=== PATIENT | female | born 1975 | race Caucasian/White ===

== ENCOUNTER 2016-04-01 20:06 | Emergency (ER) | payer MEDICARE, MEDICAID ==
[~2016-04-01] VITALS: Ht 165.1 cm; Wt 68.0 kg
[~2016-04-01 20:06] MED LIST: CHOL200018 PO; CIPR-263 PO; DEPER5 PO; DOCU-138 PO; LAM1 PO; LAM2 PO; LEVE1000 PO; LORA-249 PO; LORA-250 PO; METO10TA3 PO; OMEP20CA4 PO; PARO20TA53 PO; RISP3 PO; RISP4 PO; SIMV20TA2 PO; TEMA30CA PO; [UNRECOGNIZED DRUG - OTHER] PO
[2016-04-01] MEDS ORDERED: LORAZEPAM 2MG/ML CPJ IV STA (23:02)
[2016-04-01] MEDS ORDERED: SODIUM CHLORIDE 0.9% 1,000 ML IV ONE (23:02)
[2016-04-01] MEDS ORDERED: LAMOTRIGINE 100MG TABLET PO SCH (23:30)
[2016-04-02] MEDS: LEVETIRACETAM 500MG/5ML CUP PO SCH ×3 (00:33→16:34)
[2016-04-02 01:22] LABS: BASOPHILS % 0.4 % (0.0-2.0); DIFFERENTIAL COMMENT 0; EOSINOPHILS % 8.4 % (0.0-5.0); HEMATOCRIT. 29.4 % (36.0-48.0); HEMOGLOBIN. 9.4 g/dL (12.0-16.0); LYMPHOCYTES % 40.6 % (20.0-50.0); MEAN CORPUSCULAR VOLUME 74.9 fL (81.0-99.0); MEAN PLATELET VOLUME 9.1 fl (7.4-10.4); MONOCYTES % 7.1 % (2.0-8.0); NEUTROPHILS % 43.5 % (40.0-76.0); PLATELET 279 x1000/uL (130-400); RED BLOOD CELL COUNT 3.92 mill/uL (4.2-5.4); RED CELL DISTRIBUTION WIDTH 19.2 % (11.6-14.6); WHITE BLOOD COUNT 8.9 x1000/uL (4.5-11.0)
[2016-04-02 01:46] LABS: HCG SCREEN NEGATIVE
[2016-04-02 02:16] LABS: ALBUMIN 2.6 g/dL (3.4-5.0); ANION GAP 11; CALCIUM 8.1 mg/dL (8.5-10.1); CARBON DIOXIDE 30 mEq/L (21-32); CHLORIDE 103 mEq/L (98-107); UREA NITROGEN BLOOD 12 mg/dL (7-21); eGFR > 60 mL/min (>60)
[2016-04-02 02:17] LABS: ACETAMINOPHEN < 2 ug/mL (10-30); ALANINE AMINOTRANSFERASE 10 IU/L (13-61); CREATINE KINASE 38 IU/L (26-192); ETHANOL BLOOD < 10 mg/dL; LIPASE 109 IU/L (73-393)
[2016-04-02 02:18] LABS: AMMONIA 20 uMol/L (<32)
[2016-04-02 02:49] LABS: LACTIC ACID 2.4 mmol/L (0.4-2.0)
[2016-04-02 03:12] LABS: INDEX HEMOLYSI 1 (1-3); INDEX ICTERIC 1 (1-4); INDEX LIPEMIC 1 (1-3)
[2016-04-02 19:10] VITALS: BP 124/84
[2016-04-02] MEDS ORDERED: LAMOTRIGINE 100MG TABLET PO SCH (21:00)
== END 2016-04-02 19:18 ==
LOC: ER 20:21
DX: F41.9 Anxiety disorder, unspecified (principal); J44.9 Chronic obstructive pulmonary disease, unspecified; K21.9 Gastro-esophageal reflux disease without esophagitis; I10 Essential (primary) hypertension; R41.82 Altered mental status, unspecified; G80.9 Cerebral palsy, unspecified; Z86.73 Personal history of transient ischemic attack (TIA), and cerebral infarction without residual deficits; Z79.899 Other long term (current) drug therapy; Z79.2 Long term (current) use of antibiotics
CPT/HCPCS: 36415; 70450; 71010; 74176; 80053; 80307; 80329; 82140; 82550; 82962; 83605; 83690; 84443; 84703; 85025; 85610; 93005; 96361; 96374; 99285; G0482; J2060; J7030